=== PATIENT | female | born 1980 | race Caucasian/White ===

== ENCOUNTER 2016-09-27 18:24 | Emergency (ER) | payer OTHER ==
[2016-09-27 20:01] LABS: BASOPHIL 0.2 % (0-2); HCT 40.3 % (37.0-47.0); LYMPHOCYTE 15.5 % (15-48); MCH 29.8 pg (25.0-31.0); MCHC 34.7 g/dL (32.0-36.0); MCV 85.7 fL (78.0-100.0); MONOCYTE 7.1 % (0-12); MPV 10.3 fL (6.0-9.5); NEUTROPHIL 75.2 % (41-80); PLT 196 K/uL (150-400); WBC 8.1 K/uL (4.0-10.5)
[2016-09-27 20:21] LABS: CREATININE 1.2 mg/dL (0.5-1.0)
== END 2016-09-27 23:29 | disposition home or self-care (01) ==
LOC: FER 18:24
PROVIDERS: Nurse Practitioner Family
DX: L02.415 Cutaneous abscess of right lower limb (principal); Z88.8 Allergy status to other drugs, medicaments and biological substances
CPT/HCPCS: 36415; 80048; 85025; 86403; 87070; 87077; 87186; 87205